=== PATIENT | male | born 1985 | race Caucasian/White ===

== ENCOUNTER 2022-08-20 08:13 | Emergency (ER) | payer OTHER ==
[~2022-08-20] VITALS: Ht 172.7 cm; Wt 95.7 kg
[2022-08-20] MEDS ORDERED: HYDROCODON-ACE1 EA10 PO (10:04)
[2022-08-20] MEDS ORDERED: NAPROSYN500 MG PO (10:04)
== END 2022-08-20 10:31 | disposition home or self-care (01) ==
LOC: ED 08:13
PROC: 2W3CX1Z Immobilization of Right Lower Arm using Splint (ICD-10-PCS; principal; 2022-08-20)
DX: S62.124A Nondisplaced fracture of lunate [semilunar], right wrist, initial encounter for closed fracture (principal); X58.XXXA Exposure to other specified factors, initial encounter
CPT/HCPCS: 29125; 73090; 73110; 73200; 99284-25; A9270; J1885